=== PATIENT | female | born 1990 | race Caucasian/White ===

== ENCOUNTER 2021-05-05 13:42 | Emergency (ER) | payer OTHER ==
[2021-05-05] MEDS ORDERED: NA CHLORIDE 0.9% 1,000 ML ONE (14:33)
[2021-05-05] MEDS ORDERED: LORazepam 2 MG/ML VIAL ONE (14:33)
[2021-05-05 14:39] LABS: Basophils % 0.8 % (0-1.3); Hematocrit 40.5 % (36.0-45.0); Lymphocytes % 25.9 % (15.3-44.8); MPV 8.3 fL (7.6-11.3); RBC Red Blood Cell Count 4.84 M/uL (3.86-4.86)
[2021-05-05 14:54] LABS: ALT/SGPT 88 U/L (12-78); AST/SGOT 47 U/L (15-37); Albumin 4.3 g/dL (3.4-5.0); Alkaline Phosphatase 130 U/L (45-117); BUN Blood Urea Nitrogen 8 mg/dL (7-18); Bicarbonate 20 mmol/L (21-32); Bilirubin Direct 0.3 mg/dL (0-0.2); Bilirubin Total 1.2 mg/dL (0.2-1.0); Glucose Level 91 mg/dL (74-106); Magnesium 1.6 mg/dL (1.8-2.4); Protein, Total 8.8 g/dL (6.4-8.2); Sodium Level 132 mmol/L (136-145)
[2021-05-05 14:56] LABS: Troponin (Emerg Dept Use Only) < 0.02 ng/mL (0.0-0.045)
[2021-05-05 15:19] LABS: Urine Blood Negative (Negative); Urine Glucose Negative (Negative); Urine Protein Negative (Negative)
--- NOTE | 2021-05-05 15:22 | EDPHYS ---
Physician Documentation [facility] Name: Marissa Lezama Age: 30 yrs Sex: Female : 1990 Arrival Date: 05/05/2021 Time: 13:48 Bed 20 Private MD: ED Physician Trevor Chavez HPI: 05/05 14:05 This 30 yrs old Female presents to ER via EMS with complaints of Anxiety. 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 She states that she has had these episodes before and takes an extra buspirone on top of her daily 1 dose pill. She is also on an SSRI. Patient also happened to do inhaled cocaine 2 days ago but has not done any other drugs since then and does not believe that that is contributing to her symptoms today. She is actively involved in drug rehabilitation including AA. She denies headache, neck pain, chest pain, shortness of breath, abdominal pain, back pain, nausea, vomiting, diarrhea, neuro symptoms, any other symptoms at this time. Remainder of ROS is negative.. 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 - Social history:: Smoking status: Patient reports the use of cigarette tobacco products, smokes one-half pack cigarettes per day, Patient uses alcohol, on a daily basis. street drugs, cocaine, pt states "i used 2 days ago". ROS: 14:15 Constitutional: Negative for fever, chills, and weight loss, Eyes: Negative for injury, sp3 pain, redness, and discharge, ENT: Negative for injury, pain, and discharge, Neck: Negative for injury, pain, and swelling, Respiratory: Negative for shortness of breath, cough, wheezing, and pleuritic chest pain, Back: Negative for injury and pain, MS/Extremity: Negative for injury and deformity, Skin: Negative for injury, rash, and discoloration, Neuro: Negative for headache, weakness, numbness, tingling, and seizure, Psych: Negative for depression, anxiety, suicide ideation, homicidal ideation, and hallucinations, Allergy/Immunology: Negative for hives, rash, and allergies, Endocrine: Negative for neck swelling, polydipsia, polyuria, polyphagia, and marked weight changes, Hematologic/Lymphatic: Negative for swollen nodes, abnormal bleeding, and unusual bruising. 14:15 All other systems are negative. Exam: 14:15 Constitutional: This is a well developed, well nourished patient who is awake, alert, sp3 and in no acute distress. Head/Face: Normocephalic, atraumatic. Neck: Trachea midline, no thyromegaly or masses palpated, and no cervical lymphadenopathy. Supple, full range of motion without nuchal rigidity, or vertebral point tenderness. No Meningismus. Chest/axilla: Normal chest wall appearance and motion. Nontender with no deformity. No lesions are appreciated. Respiratory: Lungs have equal breath sounds bilaterally, clear to auscultation and percussion. No rales, rhonchi or wheezes noted. No increased work of breathing, no retractions or nasal flaring. Abdomen/GI: Soft, non-tender, with normal bowel sounds. No distension or tympany. No guarding or rebound. No evidence of tenderness throughout. Skin: Warm, dry with normal turgor. Normal color with no rashes, no lesions, and no evidence of cellulitis. MS/ Extremity: Pulses equal, no cyanosis. Neurovascular intact. Full, normal range of motion. Neuro: Awake and alert, GCS 15, oriented to person, place, time, and situation. Cranial nerves II-XII grossly intact. Motor strength 5/5 in all extremities. Sensory grossly intact. Cerebellar exam normal. Normal gait. 14:15 Cardiovascular: Normal cardiac exam except for tachycardia in the 120s.. 14:15 Psych: Patient is anxious but otherwise in no distress. Patient is not suicidal, homicidal, or psychotic. Patient contracts for her own safety.. Vital Signs: 13:45 BP 138 / 88; Pulse 130; Resp 20; Temp 97.9(TE); Pulse Ox 100% on R/A; Weight 62.6 kg tw2 (R); Height 5 ft. 3 in. (160.02 cm); 14:40 BP 139 / 64; Pulse 93; Resp 18; Temp 97.7(O); Pulse Ox 100% on R/A; mh5 14:46 BP 138 / 77; Pulse 95; Resp 18; Temp 97.9; Pulse Ox 100% on R/A; sl2 15:15 BP 132 / 86; Pulse 94; Resp 16; Pulse Ox 100% on R/A; sl2 16:15 BP 128 / 76; Pulse 91; Resp 18; Temp 98.6; Pulse Ox 99% on R/A; sl2 13:45 Body Mass Index 24.45 (62.60 kg, 160.02 cm) tw2 MDM: 14:05 Patient medically screened. sp3 14:17 Data reviewed: vital signs, nurses notes. ED course: Will obtain cardiac work-up, sp3 administer normal saline 1 L, and Ativan 1 mg IV. Patient symptoms likely related to her anxiety once heart rate is controlled and she feels better should be able to discharge her. Will obtain EKG and laboratory values to assess for any contributing factors such as cocaine use.. 15:21 ED course: We will replenish potassium. Chest x-ray is normal. Heart rate is in the 90s sp3 the patient is in no acute distress. Will discharge home at this time.. 05/05 14:06 Order name: Basic Metabolic Panel; Complete Time: 15:19 sp3 05/05 14:06 Order name: CBC with Diff; Complete Time: 15:19 sp3 05/05 14:06 Order name: LFT's; Complete Time: 15:19 sp3 05/05 14:06 Order name: Magnesium; Complete Time: 15:19 sp3 05/05 14:06 Order name: Troponin (emerg Dept Use Only); Complete Time: 15:19 sp3 05/05 15:19 Order name: Urine Dipstick-Ancillary EDMS 05/05 14:06 Order name: XRAY Chest (1 view) sp3 05/05 14:06 Order name: EKG; Complete Time: 14:07 sp3 05/05 14:06 Order name: EKG - Nurse/Tech; Complete Time: 14:39 sp3 05/05 14:06 Order name: IV Saline Lock; Complete Time: 14:45 sp3 05/05 15:23 Order name: Urine --Ancillary (enter results) eb 05/05 14:06 Order name: Labs collected and sent; Complete Time: 14:45 sp3 Administered Medications: 14:41 Drug: Ativan (LORazepam) 1 mg Route: IVP; Site: left antecubital; sl2 14:54 Follow up: Response: No adverse reaction sl2 16:41 Follow up: Response: No adverse reaction sl2 14:41 Drug: NS 0.9% 1000 ml Route: IV; Rate: 1 bolus; Site: left antecubital; sl2 14:54 Follow up: Response: No adverse reaction sl2 16:41 Follow up: Response: No adverse reaction; IV Status: Completed infusion; IV Intake: sl2 1000ml 15:43 Drug: Potassium Chloride 40 mEq Route: PO; jl7 16:41 Follow up: Response: No adverse reaction sl2 Disposition Summary: 05/05/21 15:22 Discharge Ordered Location: Home sp3 Condition: Stable sp3 Diagnosis - Anxiety disorder, unspecified sp3 Followup: sp3 - With: Private Physician - When: As needed - Reason: Continuance of care Discharge Instructions: - Discharge Summary Sheet sp3 - Social Anxiety Disorder, Adult sp3 Forms: - Medication Reconciliation Form sp3 - Thank You Letter sp3 - Antibiotic Education sp3 - Prescription Opioid Use sp3 Signatures: Dispatcher [employer] EDShelbi Richards RN RN tw2 Tata Heredia RN RN jl7 Trevor Chavez MD MD sp3 Amaris Ruth RN RN sl2
--- NOTE | 2021-05-05 15:22 | ER ---
Nurse's Notes [facility] Name: Marissa Lezama Age: 30 yrs Sex: Female : 1990 Arrival Date: 05/05/2021 Time: 13:48 Bed 20 Private MD: Diagnosis: Anxiety disorder, unspecified Presentation: 05/05 13:45 Chief complaint: EMS states: [facility] in [place] called us for someone having an tw2 anxiety attack. initially her HR was 130's. we got her to slow her breathing down and it came down to 110's. she is c/o hand cramping and weakness in her legs. Coronavirus screen: At this time, the client does not indicate any symptoms associated with coronavirus-19. Ebola Screen: Patient denies travel to an Ebola-affected area in the 21 days before illness onset. Initial Sepsis Screen: Does the patient meet any 2 criteria? HR > 90 bpm. Does the patient have a suspected source of infection? No. Patient's initial sepsis screen is negative. Risk Assessment: Do you want to hurt yourself or someone else? Patient reports no desire to harm self or others. Onset of symptoms was May 05, 2021. Care prior to arrival: None. 13:45 Method Of Arrival: EMS: [facility] tw2 13:45 Acuity: CHIVO 2 tw2 Triage Assessment: 13:45 General: Appears slender, Behavior is cooperative, anxious. Pain: Denies pain. EENT: tw2 Reports "my mouth feels really dry". Musculoskeletal: Reports "my hands are cramping". 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 - Social history:: Smoking status: Patient reports the use of cigarette tobacco products, smokes one-half pack cigarettes per day, Patient uses alcohol, on a daily basis. street drugs, cocaine, pt states "i used 2 days ago". Screenin:43 Abuse screen: Denies threats or abuse. Denies injuries from another. Nutritional jl7 screening: No deficits noted. Tuberculosis screening: No symptoms or risk factors identified. Fall Risk IV access (20 points). Total Forrest Fall Scale indicates No Risk (0-24 pts). Assessment: 15:43 Reassessment: Pt will be discharged once fluids are done infusing. jl7 Vital Signs: 13:45 BP 138 / 88; Pulse 130; Resp 20; Temp 97.9(TE); Pulse Ox 100% on R/A; Weight 62.6 kg tw2 (R); Height 5 ft. 3 in. (160.02 cm); 14:40 BP 139 / 64; Pulse 93; Resp 18; Temp 97.7(O); Pulse Ox 100% on R/A; mh5 14:46 BP 138 / 77; Pulse 95; Resp 18; Temp 97.9; Pulse Ox 100% on R/A; sl2 15:15 BP 132 / 86; Pulse 94; Resp 16; Pulse Ox 100% on R/A; sl2 16:15 BP 128 / 76; Pulse 91; Resp 18; Temp 98.6; Pulse Ox 99% on R/A; sl2 13:45 Body Mass Index 24.45 (62.60 kg, 160.02 cm) tw2 ED Course: 13:48 Patient arrived in ED. ds1 13:54 Triage completed. tw2 13:55 Arm band placed on. tw2 14:05 Trevor Chavez MD is Attending Physician. sp3 14:08 Tata Heredia, RN is Primary Nurse. jl7 14:39 Patient has correct armband on for positive identification. Placed in gown. Bed in low mh5 position. Call light in reach. Side rails up X 1. Adult w/ patient. Warm blanket given. compliance monitor on. Pulse ox on. NIBP on. 14:39 EKG done, by ED staff, reviewed by Trevor Chavez MD. mh5 14:40 Primary Nurse role handed off by Tata Heredia, RN sl2 14:40 Amaris Ruth, JOSE RAMON is Primary Nurse. sl2 14:44 Initial lab(s) drawn, by ED staff, sent to lab. 5 14:45 Basic Metabolic Panel Sent. 5 14:45 LFT's Sent. 5 14:45 Magnesium Sent. 5 14:45 Troponin (emerg Dept Use Only) Sent. 5 15:20 Urine collected: clean catch specimen, clear. 5 15:21 Urine Dipstick-Ancillary Sent. 5 15:30 XRAY Chest (1 view) In Process Unspecified. EDMS 16:37 No provider procedures requiring assistance completed. IV discontinued, intact, sl2 bleeding controlled, No redness/swelling at site. Pressure dressing applied. Administered Medications: 14:41 Drug: Ativan (LORazepam) 1 mg Route: IVP; Site: left antecubital; sl2 14:54 Follow up: Response: No adverse reaction sl2 16:41 Follow up: Response: No adverse reaction sl2 14:41 Drug: NS 0.9% 1000 ml Route: IV; Rate: 1 bolus; Site: left antecubital; sl2 14:54 Follow up: Response: No adverse reaction sl2 16:41 Follow up: Response: No adverse reaction; IV Status: Completed infusion; IV Intake: sl2 1000ml 15:43 Drug: Potassium Chloride 40 mEq Route: PO; jl7 16:41 Follow up: Response: No adverse reaction sl2 Intake: 16:41 IV: 1000ml; Total: 1000ml. sl2 Outcome: 15:22 Discharge ordered by . [email or web address] 16:37 Discharged to home ambulatory, with family. sl2 16:37 Condition: stable 16:37 Discharge instructions given to patient, family, Instructed on discharge instructions, follow up and referral plans. Demonstrated understanding of instructions, follow-up care. 17:02 Patient left the ED. jl7 Signatures: Dispatcher [employer] EDSD Ynes Gilbert 1 Shelbi Carpio RN RN 2 Beth Jensen [facility] Tata Heredia RN RN jl7 Trevor Chavez MD MD sp3 Amaris Ruth RN RN sl2
[2021-05-05] MEDS ORDERED: POTASSIUM CL SA 10 MEQ TAB PO ONE (15:26)
--- NOTE | 2021-05-05 16:00 | RAD REPORT ---
EXAM DESCRIPTION: Dyana Single View05/05/2021 3:30 pm CLINICAL HISTORY: Chest pain COMPARISON: 2010 FINDINGS: The lungs are hyperaerated. Calcified granuloma right lung. The lungs appear clear of acu te infiltrate. The heart is normal size IMPRESSION: No acute abnormalities displayed
[2021-05-05 18:29] VITALS: BP 128/76; TEMP 98.6; O2SAT 99
--- NOTE | 2021-05-06 18:27 | EKG ---
Test Date: 2021-05-05 Test Time: 14:40:41 Furnace Tapper: PILAR MEASUREMENT RESULTS: Intervals: Rate: 91 KS: 132 QRSD: 80 QT: 368 QTc: 452 [place]: P: 76 KS: 132 QRS: 86 T: 59 INTERPRETIVE STATEMENTS: Normal sinus rhythm with sinus arrhythmia Normal ECG Compared to ECG 08/18/2010 08:32:22 No significant changes Electronically Signed On 05-06-21 18:23:42 PELLET MILL OPERATOR by Rigo Patino
--- OUTSIDE RECORDS SUMMARY | 2021-05-11 15:37 | XMS REPORT | Continuity of Care Document ---
:1990 Author Organization [facility] t Address [address] [place] [address] Care Team Providers Name Role Phone ROSE Attending Clinician Unavailable TRINIDAD PACE Attending Clinician Unavailable Payers Payer Name Policy Type Policy Number Effective Date Expiration Date S rodolfo [employer] [id number] 2019 HEALTH 00:00:00 Problems This patient has no known problems. Allergies, Adverse Reactions, Alerts Allergy Allergy Status Severity Reaction(s) Onset Inactive Treating Comm ents Source Name Type Date Date Clinician MORPHINE DRUG Active Hives 2012- [facility] 5-06 ity of 00:00: [address] MORPHINE Adverse Active hives [facility] Medications Ordered Filled Start Stop Current Ordering Indication Dosage Frequency Signature Comments Components Source Medication Medication Date Date Medication? Clinician (SIG) Name Name Acyclovir Acyclovir Yes Maris [address] [facility] 7-09 [facility] BusPIRone BusPIRone 2018-06 Yes Maris [address] [facility] HCl HCl 0-23 Millender as needed [facility] Paroxetine Paroxetine Yes Maris [address] [facility] HCl HCl 9-04 Millender in the [facility] Multivitami Multivitami Yes Maris as [facility] Adult n Adult [facility] Hair Skin Hair Skin Yes Maris as [facility] Nails Nails [facility] Procedures This patient has no known procedures. Encounters Start End Encounter Admission Attending Care Care Encounter Source Date/Time Date/Time Type Type Clinicians Facility Department ID 2022-01-20 2022-01-20 Outpatient Kaye ROSE [facility] [id number] Univers 14:30:00 14:30:00 ADDISON [id number] [facility] 2021-03-05 2021-03-05 Outpatient R [facility] [id number] Univers 14:00:00 14:00:00 [id number] [facility] 2021-03-05 2021-03-05 Outpatient R ADITYA PACE [facility] [id number] Univers 14:00:00 14:00:00 [facility] 2021-02-01 2021-02-01 Outpatient [facility] [id number] [facility] 2021-01-28 2021-01-28 Outpatient [facility] [id number] [facility] 2021-01-24 2021-01-24 Outpatient R [facility] [id number] Univers 15:00:00 15:00:00 [id number] [facility] 2021-01-24 2021-01-24 Outpatient R [facility] [id number] Univers 15:00:00 15:00:00 [facility] 2021-01-16 2021-01-16 Outpatient Kaye ROSE [facility] [id number] Univers 13:45:00 13:45:00 ADDISON [id number] [facility] 2021-01-16 2021-01-16 Outpatient Kaye ROSE [facility] [id number] Univers 13:45:00 13:45:00 ADDISON [facility] 2021-01-01 2021-01-01 Outpatient Kaye ALISSONLEMUEL [facility] [id number] Univers 09:15:00 09:15:00 ADDISON [id number] [facility] 2021-01-01 2021-01-01 Outpatient Kaye ROSE [facility] [id number] Univers 09:15:00 09:15:00 ADDISON [facility] 2020-11-29 2020-11-29 Outpatient [facility] [id number] [facility] 2020-11-20 2020-11-20 Outpatient Kaye ALISSONLEMUEL [facility] [id number] Univers 10:00:00 10:00:00 ADDISON [id number] [facility] 2020-11-20 2020-11-20 Outpatient Kaye ROSE [facility] [id number] Univers 10:00:00 10:00:00 ADDISON [facility] 2020-11-14 2020-11-14 Outpatient [facility] [id number] [facility] 2020-10-19 2020-10-19 Outpatient [facility] [id number] [facility] 2020-08-22 2020-08-22 Outpatient [facility] [id number] [facility] 2020-08-22 2020-08-22 Outpatient [facility] [id number] [facility] 2020-06-12 2020-06-12 Outpatient [facility] [id number] [facility] 2020-06-08 2020-06-08 Outpatient [facility] [id number] [facility] 2020-06-06 2020-06-06 Outpatient [facility] [id number] [facility] 2020-05-16 2020[facility]05-16 [id number] 2020-05-15 2020-05-15 [facility] [id number] [facility] 2020-03-21 2020-03-21 [facility] [id number] 2020-03-06 2020-03-06 Outpatient R ROSE, [facility] [id number] Univers 10:30:00 10:30:00 ADDISON [facility] 2020-01-05 2020-01-05 [facility] [id number] 08:40:00 08:40:00 [facility] l Medicine Outpati ent Clinics 2019-12-28 2019-12-28 [facility] [id number] 13:40:00 13:40:00 [facility] Medicine l Medicine Outpati ent Clinics 2019-12-12 2019-12-12 Outpatient R [facility] [id number] Univers 10:00:00 10:00:[id number]-12 2019-12-12 Outpatient R [facility] [id number] Univers 10:00:00 10:00:00 [facility] 2019-09-13 2019-09-13 Outpatient R [facility] [id number] Univers 10:00:00 10:00:00 [id number] [facility] 2019-09-13 2019-09-13 Outpatient R [facility] [id number] Univers 10:00:00 10:00:00 [facility] 2019-09-06 2019-09-06 [facility] [id number] 16:45:00 16:45:00 [facility] l Medicine Outpati ent Clinics 2019-07-28 2019-07-28 [facility] [id number] [facility] 17:39:00 17:39:00 [facility] Outpati ent Clinics 2019-05-19 2019-05-19 [facility] [id number] [facility] 10:20:00 10:20:00 [facility] Outpati ent Clinics 2019-04-20 2019-04-20 [facility] [id number] [facility] 13:00:00 13:00:00 [facility] Medicine Outpati ent Clinics 2019-03-02 2019-03-02 [facility] [id number] [facility] 11:20:00 11:20:00 [facility] Results This patient has no known results.
== END 2021-05-05 17:02 | disposition home or self-care (01) ==
LOC: ER 13:42
DX: F41.9 Anxiety disorder, unspecified (principal)
CPT/HCPCS: 96361; 93005; 85025; 80048; 36415; 83735; 81025; 80076; 81003; 84484; 71045; 96374; 99284; J7030

== ENCOUNTER 2021-06-04 18:18 | Emergency (ER) | payer OTHER ==
--- OUTSIDE RECORDS SUMMARY | 2021-06-04 18:21 | XMS REPORT | Continuity of Care Document ---
:1990 Author Organization [facility] t Address [address] [place] [address] Care Team Providers Name Role Phone ALISSONAN Attending Clinician Unavailable SANJEEV, TRINIDAD Attending Clinician Unavailable Payers Payer Name Policy Type Policy Number Effective Date Expiration Date S rod[place] [employer] [id number] 2019 HEALTH 00:00:00 Problems This patient has no known problems. Allergies, Adverse Reactions, Alerts Allergy Allergy Status Severity Reaction(s) Onset Inactive Treating Comm ents Source Name Type Date Date Clinician MORPHINE DRUG Active Hives 2012- [facility] 5-06 ity of 00:00: [address] MORPHINE Adverse Active hives [facility] Medications Ordered Filled Start Stop Current Ordering Indication Dosage Frequency Signature Comments Components Source Medication Medication Date Date Medication? Clinician (SIG) Name Name Acyclovir Acyclovir Yes Maris [address] [facility] 7-09 [facility] BusPIRone BusPIRone 2018-06 Yes Maris [address] [facility] HCl HCl 0-23 Mill[facility] as needed [facility] for [facility] 00 [facility] Paroxetine Paroxetine Yes Maris [address] [facility] HCl HCl 9-04 Millender in the [facility] Multivitami Multivitami Yes Maris as [...] Clinicians Facility Department ID 2022-01-20 2022-01-20 Outpatient R ROSE [facility] [id number] Univers 14:30:00 14:30:00 ADDISON [id number] [facility] 2021-03-05 2021-03-05 Outpatient R [facility] [id number] Univers 14:00:00 14:00:00 [id number] [facility] 2021-03-05 2021-03-05 Outpatient R ADITYA PACE [facility] [id number] Univers 14:00:00 14:00:00 [facility] 2021-02-01 2021-02-01 Outpatient [facility] [id number] [facility] 2021-01-28 2021-01-28 Outpatient [facility] [id number] [facility] 2021-01-24 2021-01-24 Outpatient R [facility] [id number] Univers 15:00:00 15:00:00 [id number] [facility] 2021-01-24 2021-01-24 Outpatient R [facility] [id number] Univers 15:00:00 15:00:00 [facility] 2021-01-16 2021-01-16 Outpatient Kaye ROSE [facility] [id number] Univers 13:45:00 13:45:00 ADDISON [id number] [facility] 2021-01-16 2021-01-16 Outpatient R ROSE [facility] [id number] Univers 13:45:00 13:45:00 ADDISON [facility] 2021-01-01 2021-01-01 Outpatient Kaye ROSE [facility] [id number] Univers 09:15:00 09:15:00 ADDISON [id number] [facility] 2021-01-01 2021-01-01 Outpatient Kaye ROSE [facility] [id number] Univers 09:15:00 09:15:00 ADDISON [facility] 2020-11-29 2020-11-29 Outpatient [facility] [id number] [facility] 2020-11-20 2020-11-20 Outpatient Kaye ALISSONLEMUEL [facility] [id number] Univers 10:00:00 10:00:00 ADDISON [id number] [facility] 2020-11-20 2020-11-20 [facility]patient [facility] [id number] Univers 10:00:00 10:00:00 ADDISON [facility] 2020-11-14 2020-11-14 Outpatient [facility] [id number] [facility] 2020-10-19 2020-10-19 Outpatient [facility] [id number] [facility] 2020-08-22 2020-08-22 Outpatient [facility] [id number] [facility] 2020-08-22 2020-08-22 Outpatient [facility] [id number] [facility] 2020-06-12 2020-06-12 Outpatient [facility] [id number] [facility] 2020-06-08 2020-06-08 Outpatient [facility] [id number] [facility] 2020-06-06 2020-06-06 [facility] [id number] [facility] 2020-05-16 2020-05-16 [facility] [id number] [facility] 2020-05-15 2020-05-15 Outpatient STLM [facility] [id number] [facility] 2020-03-21 2020-03-21 [facility] [id number] [facility] 2020-03-06 2020-03-06 Outpatient R ROSE, [facility] [id number] Univers 10:30:00 10:30:00 ADDISON [facility] 2020-01-05 2020-01-05 [facility] [id number] [facility] 08:40:00 08:40:00 [facility] l Medicine Outpati ent Clinics 2019-12-28 2019-12-28 [facility] [id number] [facility] 13:40:00 13:40:00 [facility] l Medicine Outpati ent Clinics 2019-12-12 2019-12-12 Outpatient R [facility] [id number] Univers 10:00:00 10:00:00 [id number] [facility] 2019-12-12 2019-12-12 Outpatient R [facility] [id number] Univers 10:00:00 10:00:00 [facility] 2019-09-13 2019-09-13 Outpatient R [facility] [id number] Univers 10:00:00 10:00:00 [id number] [facility] 2019-09-13 2019-09-13 Outpatient R [facility] [id number] Univers 10:00:00 10:00:00 [facility] 2019-09-06 2019-09-06 [facility] [id number] 16:45:00 16:45:[address] [facility] Medicine l Medicine Outpati ent Clinics 2019-07-28 2019-07-28 [facility] [id number] 17:39:00 17:39:00 [facility] Medicine Outpati ent Clinics 2019-05-19 2019-05-19 [facility] [id number] 10:20:00 10:20:00 [facility] Medicine Outpati ent Clinics 2019-04-20 2019-04-20 Outpatient [facility] [id number] [facility] 13:00:00 13:00:00 [facility] Medicine Outpati ent Clinics 2019-03-02 2019-03-02 Outpatient Mattie [facility] [id number] [facility] 11:20:00 11:20:00 [facility] Results This patient has no known results.
--- NOTE | 2021-06-04 20:17 | RAD REPORT ---
EXAM DESCRIPTION: Ribs Right - 06/04/2021 8:05 pm CLINICAL HISTORY: Right rib pain FINDINGS: Mildly displaced fractures involve the eighth and ninth anterolateral right ribs. No pneumothorax seen
[2021-06-04] MEDS ORDERED: KETOROLAC 30 MG/ML INJ ONE (21:56)
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
[2021-06-04 22:27] VITALS: BP 116/82; TEMP 98.7; O2SAT 100
== END 2021-06-04 22:15 | disposition home or self-care (01) ==
LOC: ER 18:18
DX: S22.41XA Multiple fractures of ribs, right side, initial encounter for closed fracture (principal); Y09 Assault by unspecified means
CPT/HCPCS: 96372; 99283